=== PATIENT | female | born 1965 | race American Indian/Alaskan Native ===

== ENCOUNTER 2022-05-30 11:21 | Outpatient (CLI) | payer MEDICAID, SELFPAY | END 2022-05-30 11:22 | disposition home or self-care (01) | LOC: AMB 06-16 13:07 | PROVIDERS: Visit Provider Family Medicine | DX: R53.1 Weakness (principal); R53.83 Other fatigue | CPT/HCPCS: A0425; A0427 ==

== ENCOUNTER 2022-06-24 21:33 | Outpatient (CLI) | payer MEDICAID, SELFPAY | END 2022-06-24 21:34 | disposition home or self-care (01) | PROVIDERS: Visit Provider Family Medicine | DX: L02.413 Cutaneous abscess of right upper limb (principal) | CPT/HCPCS: A0425; A0429 ==

== ENCOUNTER 2022-11-06 08:59 | Outpatient (CLI) | payer MEDICAID, SELFPAY | END 2022-11-06 09:00 | disposition home or self-care (01) | LOC: AMB 11-08 10:09 | PROVIDERS: Visit Provider Family Medicine | DX: U07.1 COVID-19 (principal); R06.09 Other forms of dyspnea | CPT/HCPCS: A0425; A0427 ==

== ENCOUNTER 2022-12-23 16:08 | Outpatient (CLI) | payer MEDICAID, SELFPAY | END 2022-12-23 16:09 | disposition home or self-care (01) | LOC: AMB 12-24 10:24 | PROVIDERS: Visit Provider Emergency Medicine Emergency Medical Services | DX: R06.09 Other forms of dyspnea (principal) | CPT/HCPCS: A0425; A0427 ==

== ENCOUNTER 2023-04-08 15:07 | Outpatient (CLI) | payer MEDICAID, SELFPAY | END 2023-04-08 15:08 | disposition home or self-care (01) | LOC: AMB 04-17 05:49 | PROVIDERS: Visit Provider Family Medicine | DX: M53.3 Sacrococcygeal disorders, not elsewhere classified (principal) | CPT/HCPCS: A0425; A0429 ==

== ENCOUNTER 2023-06-03 18:00 | Outpatient (CLI) | payer MEDICAID, SELFPAY | END 2023-06-03 18:01 | disposition home or self-care (01) | LOC: AMB 06-09 20:01 | PROVIDERS: Visit Provider Family Medicine | DX: K62.89 Other specified diseases of anus and rectum (principal) | CPT/HCPCS: A0425; A0429 ==

== ENCOUNTER 2023-06-21 14:03 | Outpatient (CLI) | payer MEDICAID, SELFPAY | END 2023-06-21 14:04 | disposition home or self-care (01) | LOC: AMB 06-24 11:49 | PROVIDERS: Visit Provider Family Medicine | DX: K62.2 Anal prolapse (principal) | CPT/HCPCS: A0425; A0429 ==

== ENCOUNTER 2023-07-14 10:18 | Outpatient (CLI) | payer MEDICAID, SELFPAY | END 2023-07-14 10:19 | disposition home or self-care (01) | LOC: AMB 07-15 09:32 | PROVIDERS: Visit Provider Family Medicine | DX: S39.92XA Unspecified injury of lower back, initial encounter (principal); W07.XXXA Fall from chair, initial encounter; Y92.099 Unspecified place in other non-institutional residence as the place of occurrence of the external cause | CPT/HCPCS: A0425; A0429 ==

== ENCOUNTER 2023-07-16 15:23 | Outpatient (CLI) | payer MEDICAID, SELFPAY | END 2023-07-16 15:24 | disposition home or self-care (01) | LOC: AMB 07-28 06:45 | PROVIDERS: Visit Provider Student in an Organized Health Care Education/Training Program | DX: M54.9 Dorsalgia, unspecified (principal) | CPT/HCPCS: A0425; A0427 ==

== ENCOUNTER 2023-07-26 10:51 | Outpatient (CLI) | payer MEDICAID, SELFPAY | END 2023-07-26 10:52 | disposition home or self-care (01) | LOC: AMB 07-28 07:46 | PROVIDERS: Visit Provider Family Medicine | DX: M54.9 Dorsalgia, unspecified (principal) | CPT/HCPCS: A0425; A0429 ==

== ENCOUNTER 2023-07-26 13:20 | Outpatient (CLI) | payer MEDICAID, SELFPAY | END 2023-07-26 13:21 | disposition home or self-care (01) | LOC: AMB 07-28 07:56 | PROVIDERS: Visit Provider Family Medicine | DX: M54.9 Dorsalgia, unspecified (principal); Z74.01 Bed confinement status | CPT/HCPCS: A0425; A0428 ==

== ENCOUNTER 2023-12-24 12:33 | Outpatient (CLI) | payer MEDICAID, SELFPAY | END 2023-12-24 12:34 | disposition home or self-care (01) | LOC: AMB 12-25 13:11 | PROVIDERS: Visit Provider Emergency Medicine Emergency Medical Services | DX: R51.9 Headache, unspecified (principal) | CPT/HCPCS: A0425; A0427 ==

== ENCOUNTER 2024-09-10 11:48 | Outpatient (CLI) | payer OTHER, SELFPAY | END 2024-09-10 11:49 | disposition home or self-care (01) | LOC: AMB 09-24 02:11 | PROVIDERS: PCP Family Medicine; Visit Provider Emergency Medicine | DX: S99.912A Unspecified injury of left ankle, initial encounter (principal); W22.8XXA Striking against or struck by other objects, initial encounter; Y92.099 Unspecified place in other non-institutional residence as the place of occurrence of the external cause | CPT/HCPCS: A0425; A0429 ==

== ENCOUNTER 2025-02-25 23:16 | Outpatient (CLI) | payer SELFPAY | END 2025-02-25 23:17 | disposition home or self-care (01) | LOC: AMB 02-28 11:22 | PROVIDERS: PCP Family Medicine; Visit Provider Emergency Medicine | DX: S09.93XA Unspecified injury of face, initial encounter (principal); Y04.2XXA Assault by strike against or bumped into by another person, initial encounter; Y92.199 Unspecified place in other specified residential institution as the place of occurrence of the external cause | CPT/HCPCS: A0425; A0427 ==